=== PATIENT | male | born 1950 | race Caucasian/White ===

== ENCOUNTER 2017-12-09 12:05 | Outpatient (CLI) | payer MEDICARE, BC | END 2017-12-09 23:59 | disposition home or self-care (01) | LOC: CARD DIAG 12:05 | PROVIDERS: ATTEND Physician Assistant | DX: I08.3 Combined rheumatic disorders of mitral, aortic and tricuspid valves (principal); I25.10 Atherosclerotic heart disease of native coronary artery without angina pectoris; Z95.1 Presence of aortocoronary bypass graft; Z95.5 Presence of coronary angioplasty implant and graft | CPT/HCPCS: 93306 ==

== ENCOUNTER 2018-06-20 12:35 | Emergency (ER) | payer MEDICARE, BC ==
[~2018-06-20] VITALS: Ht 172.7 cm; Wt 83.0 kg
[2018-06-20 13:04] VITALS: BP 149/72
== END 2018-06-20 13:59 | disposition home or self-care (01) ==
LOC: ER 12:37
DX: S30.813A Abrasion of scrotum and testes, initial encounter (principal); I25.10 Atherosclerotic heart disease of native coronary artery without angina pectoris; Z88.8 Allergy status to other drugs, medicaments and biological substances; Z88.5 Allergy status to narcotic agent; X58.XXXA Exposure to other specified factors, initial encounter; Y93.89 Activity, other specified; Y92.89 Other specified places as the place of occurrence of the external cause; Y99.8 Other external cause status
CPT/HCPCS: 99282

== ENCOUNTER 2024-12-14 09:02 | Emergency (ER) | payer MEDICARE, OTHER ==
[~2024-12-14] VITALS: Ht 172.7 cm; Wt 82.9 kg
[2024-12-14 09:08] VITALS: TEMP 98.2
[2024-12-14 09:52] VITALS: BP 123/63; PULSE 49; RESP 18; O2SAT 97
--- NOTE | 2024-12-14 10:05 | Physician Documentation ---
History of Present Illness ~ Chief Complaint: Suture Removal Stated Complaint: SUTURE REMOVAL Time Seen by MD: 09:27 Primary Medical Doctor: Kt sahu) HPI Patient is seen today with complaints of needing sutures removed from his right forearm. Patient states he had four simple sutures placed about nine or 10 days ago and needs them removed. He has no other concern or complaint at this time. Tetanus Within 5 Years: Yes Medication Reconciliation Allergies: Coded Allergies: meperidine (Verified Allergy, Unknown, 12/14/24) ramipril (Verified Allergy, Unknown, 12/14/24) Discontinued Medications Doxycycline Monohydrate (Doxycycline Monohydrate), 1 CAP PO Q12H Discontinued Reason: Auto Discontinued Past Medical History Past Medical History: Coronary Artery Disease Past Surgical History: noncontributory Alcohol Use: Rarely Drug Use: none Lives with: Family Lives In: Home Review of Systems Constitutional: Denies: chills, fever, weakness Eyes: Denies: pain, blurred vision ENT: Denies: ear pain, nose pain, throat pain, mouth pain Respiratory: Denies: cough, shortness of breath Cardiovascular: Denies: chest pain, palpitations Gastrointestinal: Denies: abdominal pain, nausea, vomiting Genitourinary: Denies: burning, dysuria Male Genitalia: Denies: penile discharge, testicular pain Neurological: Denies: headache, dizziness Musculoskeletal: Denies: pain, swelling Integumentary: Denies: rash, lesions Allergic/Immunologic: Denies: hives, itching Hematologic/Lymphatic: Denies: no symptoms reported Psychiatric: Denies: depression, anxiety Physical Exam Vital Signs: Temperature: 98.2, Source: Temporal, Heart Rate: 49, Respiratory Rate: 18, BP: 123/63, Pulse Oximetry: 97, Weight: 82.900 Oxygen Flow Rate: 0 Physical Exam General: Awake and Alert, no acute distress. HEENT: Conjunctiva pink, Sclera clear, Mucus Membranes moist. Neck: Supple without masses and tenderness. Resp: Unlabored. Lungs clear to auscultation bilaterally. Extremities: No cyanosis,clubbing or edema. Skin: Patient on exam has for simple sutures in place of the right upper extremity just distal to the lateral epicondyle. There is no erythema and no induration no sign of infection. Laceration appears well healed. Progress Results/Orders Results/Orders Vital Signs 12/14/24 12/14/24 09:08 09:52 Temp 98.2 Pulse 51 49 Resp 18 18 B/P (MAP) 135/68 123/63 (83) Pulse Ox 95 97 O2 Flow Rate 0 Medical Decision Making Findings Patient is seen today with complaints of needing sutures removed from his right forearm. Patient states he had four simple sutures placed about nine or 10 days ago and needs them removed. He has no other concern or complaint at this time. Patient did have sutures removed today by nurse. Patient tolerated well. Patient will return to ED with any worsening, concerning or changing symptoms. Departure Disposition: HOME / SELF CARE / HOMELESS Impression: Primary Impression: Visit for suture removal Condition: Improved Discharge Instructions: Suture Removal, Care After Additional Instructions: Patient did have sutures removed today by nurse. Patient tolerated well. Patient will return to ED with any worsening, concerning or changing symptoms. Referrals: NO PRIMARY CARE PROVIDER (PCP) Signature Scribe Signature: No scribe Attestation: No scribe DEVI LEWIS PAC Dec 14, 2024 10:05
== END 2024-12-14 10:10 | disposition left against medical advice (07) ==
LOC: ER 09:03
DX: S51.811D Laceration without foreign body of right forearm, subsequent encounter (principal); I25.10 Atherosclerotic heart disease of native coronary artery without angina pectoris; Z88.5 Allergy status to narcotic agent; Z88.8 Allergy status to other drugs, medicaments and biological substances; X58.XXXD Exposure to other specified factors, subsequent encounter
CPT/HCPCS: 99284